=== PATIENT | female | born 1970 ===

== ENCOUNTER 2018-03-04 10:11 | Emergency (ER) | payer OTHER ==
[2018-03-04 10:19] VITALS: BP 131/83; PULSE 67; RESP 16; TEMP 98.4; O2SAT 99
[2018-03-04] MEDS ORDERED: APAP/HYDROCODONE 1 EACH TABLET PO ONE (10:31)
[2018-03-04] MEDS ORDERED: CYCLOBENZAPRINE 10 MG TAB PO ONE (10:31)
[2018-03-04] MEDS ORDERED: KETOROLAC TROMETHAMINE 30 MG/ML SOL IM ONE (10:31)
[2018-03-04] MEDS ORDERED: CYCLOBENZAPRINE 10 MG TAB ONE (10:33)
[2018-03-04] MEDS ORDERED: KETOROLAC TROMETHAMINE 30 MG/ML SOL ONE (10:33)
[2018-03-04] MEDS ORDERED: APAP/HYDROCODONE 1 EACH TABLET ONE (10:33)
== END 2018-03-04 11:26 | disposition home or self-care (01) ==
LOC: ED 10:11
DX: M54.5 Low back pain (principal)
CPT/HCPCS: 96372; 99282; J1885; A9270-GY